=== PATIENT | male | born 1950 | race Caucasian/White ===

== ENCOUNTER → 2021-01-08 | Outpatient (CLI) | payer MEDICARE ==
--- NOTE | 2021-01-09 11:22 | KCIC ---
EXAM: XR ABDOMEN 1V 01/08/2021 1:46 PM CLINICAL INDICATION: Renal stones COMPARISON: Abdominal radiograph 02/04/2016 TECHNIQUE: AP view the abdomen FINDINGS: There is a 7 mm calculus in the inferior left renal pole, increased in size. Previously se en calculus in the inferior right renal pole is not clearly seen on this exam. Bowel gas pattern is n onspecific and nonobstructive. Cholecystectomy clips are noted. No acute osseous abnormality. IMPRESSION: Left nephrolithiasis with increased size of a calculus in the inferior left renal pole. Previously seen right nephrolithiasis is not visualized on this exam. Electronically signed by: Kiya Crabtree MD (01/09/2021 11:20 AM) [id number]
== END ==
LOC: KCIC 13:43
PROVIDERS: ATTEND Urology
DX: N20.0 Calculus of kidney (principal); Z90.49 Acquired absence of other specified parts of digestive tract
CPT/HCPCS: 74018